=== PATIENT | male | born 1960 | race Caucasian/White ===

== ENCOUNTER 2025-03-03 14:01 | Emergency (ER) | payer MEDICAID ==
[~2025-03-03] VITALS: Ht 185.4 cm; Wt 104.3 kg
[2025-03-03 14:33] LABS: BASOPHILS ABSOLUTE AUTO 0.04 K/mm3 (0.00-0.23); BASOPHILS PERCENT AUTO 1 % (0-2); EOSINOPHILS ABSOLUTE AUTO 0.04 K/mm3 (0.00-0.68); EOSINOPHILS PERCENT AUTO 1 % (0-6); Hematocrit 42.9 % (37.0-53.0); Hemoglobin 14.4 g/dL (13.5-17.5); IMMATURE GRAN ABSOLUTE AUTO 0.03 K/mm3 (0.00-0.10); IMMATURE GRAN PERCENT AUTO 1 % (0-1); LYMPHOCYTES ABSOLUTE AUTO 1.06 K/mm3 (0.84-5.20); LYMPHOCYTES PERCENT AUTO 18 % (21-46); MONOCYTES ABSOLUTE AUTO 0.53 K/mm3 (0.16-1.47); MONOCYTES PERCENT AUTO 9 % (4-13); Mean Corpuscular HGB Conc 33.6 g/dL (31.5-36.5); Mean Corpuscular Volume 87 fL (80-100); NEUTROPHILS ABSOLUTE AUTO 4.23 K/mm3 (1.96-9.15); NEUTROPHILS PERCENT AUTO 71 % (41-73); NRBC ABSOLUTE 0.00 K/mm3 (0.00-0.02); NRBC Auto 0.0 /100 WBC (0.0-0.2); Platelet Count 181 K/mm3 (150-400); RDW Coefficient Variation 13.4 % (11.7-14.2); RDW Standard Deviation 42.0 fL (35.1-46.3)
[2025-03-03 15:06] LABS: Alanine Aminotransfer (ALT/SGP 35.0 U/L (12-78); Albumin, Blood 3.8 g/dL (3.4-5.0); Albumin/Globulin Ratio 1.1 (0.8-1.8); Anion Gap 8.0 mmol/L (3-11); Aspartate Aminotrans (AST/SGOT 27.0 U/L (12-37); Bilirubin, Total 0.4 mg/dL (0.1-1.0); Blood Urea Nitrogen 12.0 mg/dL (8-24); CO2, Blood 26.0 mmol/L (21-32); Calcium, Blood 8.4 mg/dL (8.5-10.1); Chloride, Blood 107.0 mmol/L (98-108); Creatinine, Blood 0.91 mg/dL (0.60-1.20); Globulin, Blood 3.6 g/dL (2.2-4.0); Glucose, Blood 108.0 mg/dL (70-99); Potassium, Blood 3.8 mmol/L (3.5-5.5); Sodium, Blood 137.0 mmol/L (136-145); Total Protein, Blood 7.4 g/dL (6.4-8.2)
[2025-03-03 15:08] LABS: Influenza A, PCR NEGATIVE (NEGATIVE); Influenza B, PCR NEGATIVE (NEGATIVE); Resp Syncytial Virus, PCR NEGATIVE (NEGATIVE); SARS-Cov-2 (COVID-19) PCR, MMC NEGATIVE (NEGATIVE)
== END 2025-03-03 16:18 | disposition left against medical advice (07) ==
LOC: ER 14:01
PROVIDERS: Physician Assistant
DX: R07.2 Precordial pain (principal); I50.9 Heart failure, unspecified; Z53.29 Procedure and treatment not carried out because of patient's decision for other reasons
CPT/HCPCS: 36415; 71046; 80053; 83880; 84484; 85025; 87637; 93005; 93010; 99282-25

== ENCOUNTER 2025-03-04 11:27 | Emergency (ER) | payer OTHER, MEDICAID ==
[~2025-03-04] VITALS: Ht 188 cm; Wt 104.3 kg
== END 2025-03-04 12:28 | disposition home or self-care (01) ==
LOC: ER 11:27
DX: F11.90 Opioid use, unspecified, uncomplicated (principal)
CPT/HCPCS: 99281

== ENCOUNTER 2025-03-04 14:38 | Inpatient (IN) | payer MEDICARE, MEDICAID ==
[~2025-03-04] VITALS: Ht 172.7 cm; Wt 86.2 kg
[2025-03-04] MEDS ORDERED: NS 1,000 ML IV SCH ×3 (15:00→20:15)
[2025-03-04] MEDS ORDERED: LORazepam 2 MG/ML 1ML Injection IV PRN ×2 (15:00→17:15)
[2025-03-04 15:08] LABS: Calcium, Ionized (POC) 1.13 mmol/L (1.10-1.46); Chloride (POC) 106 mmol/L (98-108); Creatinine (POC) 1.1 mg/dL (0.8-1.3); Glucose (ISTAT POC) 153 mg/dL (70-99); Hematocrit (POC) 42.0 % (41.0-53.0); Hemoglobin (POC) 14.3 g/dL (13.5-17.5); Potassium (POC) 3.5 mmol/L (3.5-5.5); Sodium (POC) 143 mmol/L (135-148); Total CO2 (POC) 19 mmol/L (21-32)
[2025-03-04] MEDS ORDERED: Haloperidol Lactate Inj. 5 MG/ML Injection IV ONE ×2 (15:55→17:55)
[2025-03-04 15:56] LABS: U Amphetamine Screen DETECTED; U Barbiturate Screen Not Detected; U Benzodiazapine Screen Not Detected; U Buprenorphine Screen Not Detected; U Cannabinoids Screen DETECTED; U Cocaine Screen Not Detected; U Methadone Screen Not Detected; U Methamphetamine Screen DETECTED; U Opiates Screen Not Detected; U Oxycodone Screen Not Detected; U Phencyclidine Screen Not Detected
[2025-03-04] MEDS ORDERED: DiphenhydrAMINE HCl 50 MG/ML 1ML Vial IV ONE ×2 (17:55→21:00)
[2025-03-04 20:24] LABS: pH Blood Venous 7.48 (7.34-7.37)
[2025-03-04 20:39] LABS: BASOPHILS ABSOLUTE AUTO 0.02 K/mm3 (0.00-0.23); BASOPHILS PERCENT AUTO 0 % (0-2); EOSINOPHILS ABSOLUTE AUTO 0.01 K/mm3 (0.00-0.68); EOSINOPHILS PERCENT AUTO 0 % (0-6); Hematocrit 40.0 % (37.0-53.0); Hemoglobin 14.0 g/dL (13.5-17.5); IMMATURE GRAN ABSOLUTE AUTO 0.02 K/mm3 (0.00-0.10); IMMATURE GRAN PERCENT AUTO 0 % (0-1); LYMPHOCYTES ABSOLUTE AUTO 1.05 K/mm3 (0.84-5.20); LYMPHOCYTES PERCENT AUTO 12 % (21-46); MONOCYTES ABSOLUTE AUTO 0.58 K/mm3 (0.16-1.47); MONOCYTES PERCENT AUTO 7 % (4-13); Mean Corpuscular HGB Conc 35.0 g/dL (31.5-36.5); Mean Corpuscular Volume 85 fL (80-100); NEUTROPHILS ABSOLUTE AUTO 7.15 K/mm3 (1.96-9.15); NEUTROPHILS PERCENT AUTO 81 % (41-73); NRBC ABSOLUTE 0.00 K/mm3 (0.00-0.02); NRBC Auto 0.0 /100 WBC (0.0-0.2); Platelet Count 168 K/mm3 (150-400); RDW Coefficient Variation 13.4 % (11.7-14.2); RDW Standard Deviation 42.0 fL (35.1-46.3)
[2025-03-04 21:06] LABS: Alanine Aminotransfer (ALT/SGP 29.0 U/L (12-78); Albumin, Blood 3.6 g/dL (3.4-5.0); Albumin/Globulin Ratio 1.2 (0.8-1.8); Anion Gap 9.0 mmol/L (3-11); Aspartate Aminotrans (AST/SGOT 30.0 U/L (12-37); Bilirubin, Total 0.5 mg/dL (0.1-1.0); Blood Urea Nitrogen 7.0 mg/dL (8-24); CO2, Blood 21.0 mmol/L (21-32); Calcium, Blood 8.7 mg/dL (8.5-10.1); Chloride, Blood 112.0 mmol/L (98-108); Creatinine, Blood 0.81 mg/dL (0.60-1.20); Globulin, Blood 3.1 g/dL (2.2-4.0); Glucose, Blood 101.0 mg/dL (70-99); Potassium, Blood 3.2 mmol/L (3.5-5.5); Sodium, Blood 139.0 mmol/L (136-145); Total Protein, Blood 6.7 g/dL (6.4-8.2)
[2025-03-04 22:00] VITALS: BP 135/88
[2025-03-04 22:15] VITALS: BP 135/72
[2025-03-04 22:30] VITALS: BP 145/79
--- NOTE | 2025-03-04 22:51 | NUR ---
ASSUMPTION OF CARE NOTE: ASSUMED CARE OF PT AT 2120 FROM THE ER. PT WAS THRASHING IN BED AND AGGRESSIVE WITH STAFF IN LOCKED RESTRAINTS. PT IS ON CONTINUOUS FLUIDS AT 150ML/HR. PRECEDEX INFUSING AT 0.6 MCG/KG/HR. SKIN INTACT.PUREWICK IN PLACE. LEFT HAND PIV PATENT. RAAS -4 UPON ARRIVAL. PT CURRENTLY ON RA AND SBP IN THE 140'S. BED LOW AND LOCKED FOR SAFETY.
[2025-03-04 23:00] VITALS: BP 142/77
[2025-03-04 23:30] VITALS: BP 142/77
[2025-03-04 23:45] VITALS: BP 126/96
[2025-03-05] VITALS (48 sets, daily range): BP systolic 127–180; BP diastolic 68–161
[2025-03-05 04:01] LABS: BASOPHILS ABSOLUTE AUTO 0.03 K/mm3 (0.00-0.23); BASOPHILS PERCENT AUTO 0 % (0-2); EOSINOPHILS ABSOLUTE AUTO 0.01 K/mm3 (0.00-0.68); EOSINOPHILS PERCENT AUTO 0 % (0-6); Hematocrit 39.1 % (37.0-53.0); Hemoglobin 13.5 g/dL (13.5-17.5); IMMATURE GRAN ABSOLUTE AUTO 0.01 K/mm3 (0.00-0.10); IMMATURE GRAN PERCENT AUTO 0 % (0-1); LYMPHOCYTES ABSOLUTE AUTO 1.11 K/mm3 (0.84-5.20); LYMPHOCYTES PERCENT AUTO 14 % (21-46); MONOCYTES ABSOLUTE AUTO 0.47 K/mm3 (0.16-1.47); MONOCYTES PERCENT AUTO 6 % (4-13); Mean Corpuscular HGB Conc 34.5 g/dL (31.5-36.5); Mean Corpuscular Volume 85 fL (80-100); NEUTROPHILS ABSOLUTE AUTO 6.34 K/mm3 (1.96-9.15); NEUTROPHILS PERCENT AUTO 80 % (41-73); NRBC ABSOLUTE 0.00 K/mm3 (0.00-0.02); NRBC Auto 0.0 /100 WBC (0.0-0.2); Platelet Count 153 K/mm3 (150-400); RDW Coefficient Variation 13.6 % (11.7-14.2); RDW Standard Deviation 42.2 fL (35.1-46.3)
[2025-03-05 04:21] LABS: Anion Gap 9.0 mmol/L (3-11); Blood Urea Nitrogen 6.0 mg/dL (8-24); CO2, Blood 23.0 mmol/L (21-32); Calcium, Blood 8.1 mg/dL (8.5-10.1); Chloride, Blood 110.0 mmol/L (98-108); Creatinine, Blood 0.85 mg/dL (0.60-1.20); Glucose, Blood 127.0 mg/dL (70-99); Potassium, Blood 5.0 mmol/L (3.5-5.5); Sodium, Blood 137.0 mmol/L (136-145)
--- NOTE | 2025-03-05 06:17 | NUR ---
SHIFT SUMM: PT IS CURRENTLY ASLEEP AND TITRATED OFF OF PRECEDEX DRIP DUE TO BRADYCARDIA. PT IS IN 2 POINT TAT RESTRAINTS TO BUE. PT HAS A PATENT PURE WICK AND REPOSITONED Q2 FOR COMFORT. PT IS A RAAS OF -1 AND STILL DOES NOT OBEY COMMNADS. PT SBP IN 140-160'S AND HR IN 40-50'S. PT CURRENTLY ON RA AND MAINTAINING SATS ABOVE 94%. NS INFUSING AT 150ML/HR.
[2025-03-05] MEDS ORDERED: Enoxaparin 40 MG/0.4 ML SYR SC SCH (09:00)
--- NOTE | 2025-03-05 18:13 | NUR ---
Summary. Pt out of restraints at beginning of shift, calm and cooperative with care. Pt A&O x 2/3. Sleeping most of shift. NS infusing at 150/hr. No acute events this shift, see chart for details.
--- NOTE | 2025-03-05 20:15 | NUR ---
ASSUMPTION OF CARE: ASSUMED CARE OF PT AT 1900 PT IS RELAXING IN BED AND ABLE TO FOLLOW COMMANDS. PT ENJOYED A SNACK AND WAS ABLE TO EAT IND WITH NO PROBLEMS. PT HAS PATENT PURE WICK. PIV TO L HAND AND RAC. CURRENTLY HAS 100ML/HR OF NS INFUSING. PRECEDEX REMAINS OFF. RA SATTING ABOVE 95%. HR AT 56 SINUS KATHLEEN AND SBP IN 140'S
[2025-03-06] VITALS (29 sets, daily range): BP systolic 131–170; BP diastolic 65–120
--- NOTE | 2025-03-06 05:29 | NUR ---
SHIFT SUMM: PT HAS BEEN RESTING MOST OF THE SHIFT AND HAS BEEN PLEASANT AND ABLE TO FOLLOW COMMANDS.PT CONTINUES TO HAVE NS INFUSING AT 100ML/HR. PT RECIEVED A BED BATH AND CATH CARE COMPLETE WITH A NEW PURE WICK IN PLACE. PT HAS HAD AN APPETITE THIS SHIFT AND HAS BEEN IND WITH MEALS. PATENT PIV IN L&R ARMS.PATENT PUREWICK. PT HAS BED LOW AND LOCKED FOR SAFETY.
[2025-03-06 10:30] LABS: Anion Gap 10.0 mmol/L (3-11); Blood Urea Nitrogen 6.0 mg/dL (8-24); CO2, Blood 24.0 mmol/L (21-32); Calcium, Blood 8.7 mg/dL (8.5-10.1); Chloride, Blood 107.0 mmol/L (98-108); Creatinine, Blood 0.86 mg/dL (0.60-1.20); Glucose, Blood 125.0 mg/dL (70-99); Magnesium, Blood 1.6 mg/dL (1.6-2.4); Phosphorus, Blood 2.5 mg/dL (2.5-4.9); Potassium, Blood 3.3 mmol/L (3.5-5.5); Sodium, Blood 138.0 mmol/L (136-145)
[2025-03-06] MEDS ORDERED: Ondansetron HCl 2 MG / ML 2ML Vial IV PRN (14:05)
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
== END 2025-03-06 17:00 | disposition home or self-care (01) | DRG 917 ==
LOC: ER 14:38 → ICUE 14:39
PROVIDERS: Emergency Medicine; Internal Medicine; Nurse Practitioner Acute Care; ADMIT Student in an Organized Health Care Education/Training Program
DX: T43.651A Poisoning by methamphetamines accidental (unintentional), initial encounter (principal); G92.8 Other toxic encephalopathy; E87.20 Acidosis, unspecified; F11.23 Opioid dependence with withdrawal; I50.9 Heart failure, unspecified; R00.1 Bradycardia, unspecified; E87.6 Hypokalemia; F15.959 Other stimulant use, unspecified with stimulant-induced psychotic disorder, unspecified
CPT/HCPCS: 36415; 51701; 80047; 80048; 80053; 82550; 82803; 82947; 83605; 83735; 84100; 84484; 85014; 85025; 93005; 93010; 94762; 96361; 96372; 96374; 96375; 96376; 97165; 99285-25; A9270; G0378; J1200; J1630; J1650; J2060; J2405; J7030